=== PATIENT | female | born 1950 | race Caucasian/White ===

== ENCOUNTER → 2017-01-08 | Day surgery (SDC) | payer OTHER ==
[~2017-01-08] VITALS: Ht 144.8 cm; Wt 76.2 kg
[~2017-01-08] MED LIST: ACETAMINOPHEN 325 MG TAB PO PRN; ASPI1TAB PO; ATOR40TA PO; AcetaZOLAMIDE 500 MG ER CAP PO ONE; BSS with VANC/TOB/EPI for EYE CASES IR ONE; CO Q200C PO; CYCLOPENTOLATE 2% OPHTH SOLN As Ordered ONE; CYCLOPENTOLATE 2% OPHTH SOLN XX ONE; D5W/0.2% SODIUM CHLORIDE 250 ML IV SCH; DETR2CAP PO; DRIS50002 PO; FLAX10002 PO; HEALON DUET (HEALON 10MG/ML 0.55ML & HEALON ENDOCOAT 30MG/ML 0.85ML) As Ordered ONE; KETOROLAC 0.5% OPHTH SOLN OD ONE; LIDOCAINE 1% SDV 5 ML VIAL As Ordered ONE; LIDOCAINE 4% INJ 5 ML AMP OU ONE; LOSA25TA8 PO; MAGN250T9 PO; MIDAZOLAM INJ 2 MG/2 ML VIAL (J2250) As Ordered ONE; MOXIFLOXACIN IN BSS 0.25MG/0.25ML INTRACAMERAL INJ (OR EYE ONLY)(J2280) As Ordered ONE; NOVOINJ12 SC; NOVOINJ14 SC; OFLOXACIN 0.3 % (OCUFLOX) OPTH SOL 5ML As Ordered ONE; OFLOXACIN 0.3 % (OCUFLOX) OPTH SOL 5ML XX ONE; ONDA4TAB6 PO; PHENYLEPHRINE 2.5% OPHTH SOL 2ML As Ordered ONE; PHENYLEPHRINE 2.5% OPHTH SOL 2ML XX ONE; POVIDONE-IODINE 5% OPHTH PREP SOL 30ML As Ordered ONE; PREVINJ2 IM; PROPARACAINE 0.5% OPHTH SOL 15ML OD PRN; RHOD300C PO; TRIAMCINOLONE PRES FR 40 MG/ML 1ML(TRIESENCE)(OR EYE ONLY)(J3300 PER 1MG) As Ordered ONE; TRIC145T PO; TRIMETHOBENZAMIDE 300 MG CAP PO PRN; TROPICAMIDE 1% OPHTH SOLN 2 ML As Ordered ONE; TROPICAMIDE 1% OPHTH SOLN 2 ML XX ONE; TYLE325T5 PO; fentaNYL 100 MCG/2 ML INJECTION (J3010) As Ordered ONE
[2017-01-08 11:40] VITALS: BP 123/74
== END ==
LOC: M SDC 08:38
PROVIDERS: ATTEND Ophthalmology
DX: H25.9 Unspecified age-related cataract (principal); E11.3313 Type 2 diabetes mellitus with moderate nonproliferative diabetic retinopathy with macular edema, bilateral; R32 Unspecified urinary incontinence; I10 Essential (primary) hypertension; R80.9 Proteinuria, unspecified; F41.9 Anxiety disorder, unspecified; E78.00 Pure hypercholesterolemia, unspecified; G62.9 Polyneuropathy, unspecified; E55.9 Vitamin D deficiency, unspecified; Z87.440 Personal history of urinary (tract) infections; Z79.899 Other long term (current) drug therapy; Z79.4 Long term (current) use of insulin; Z79.82 Long term (current) use of aspirin; Z88.8 Allergy status to other drugs, medicaments and biological substances
CPT/HCPCS: 66984; J2250; J2280; J3010; J3300

== ENCOUNTER → 2017-01-17 | Day surgery (SDC) | payer OTHER ==
[~2017-01-17] VITALS: Ht 144.8 cm; Wt 76.0 kg
[~2017-01-17] MED LIST changes: +ACETYLCHOLINE OPHTH SOLN 1% 2ML As Ordered ONE; -AcetaZOLAMIDE 500 MG ER CAP PO ONE; -CYCLOPENTOLATE 2% OPHTH SOLN As Ordered ONE; +CYCLOPENTOLATE 2% OPHTH SOLN OS ONE; -CYCLOPENTOLATE 2% OPHTH SOLN XX ONE; +D5W/0.2% SODIUM CHLORIDE 250 ML IV ONE; -D5W/0.2% SODIUM CHLORIDE 250 ML IV SCH; -KETOROLAC 0.5% OPHTH SOLN OD ONE; +KETOROLAC 0.5% OPHTH SOLN OS ONE; +LIDOCAINE W/EPINEPHRINE 1% 20ML VIAL As Ordered ONE; -OFLOXACIN 0.3 % (OCUFLOX) OPTH SOL 5ML As Ordered ONE; +OFLOXACIN 0.3 % (OCUFLOX) OPTH SOL 5ML OS ONE; -OFLOXACIN 0.3 % (OCUFLOX) OPTH SOL 5ML XX ONE; -PHENYLEPHRINE 2.5% OPHTH SOL 2ML As Ordered ONE; +PHENYLEPHRINE 2.5% OPHTH SOL 2ML OS ONE; -PHENYLEPHRINE 2.5% OPHTH SOL 2ML XX ONE; -PROPARACAINE 0.5% OPHTH SOL 15ML OD PRN; +PROPARACAINE 0.5% OPHTH SOL 15ML OS PRN; -TROPICAMIDE 1% OPHTH SOLN 2 ML As Ordered ONE; +TROPICAMIDE 1% OPHTH SOLN 2 ML OS ONE; -TROPICAMIDE 1% OPHTH SOLN 2 ML XX ONE; +hydrALAZINE INJ 20 MG/ML VIAL As Ordered ONE
[2017-01-17] MEDS: CEFUROXIME 1MG/0.1ML INTRACAMERAL INJ As Ordered ONE ×2 (06:19→10:08)
[2017-01-17 10:45] VITALS: BP 167/95
== END ==
LOC: M SDC 06:49 → EDUNIT# 13:00
PROVIDERS: ATTEND Ophthalmology
DX: H26.9 Unspecified cataract (principal); E11.3313 Type 2 diabetes mellitus with moderate nonproliferative diabetic retinopathy with macular edema, bilateral; F41.9 Anxiety disorder, unspecified; G62.9 Polyneuropathy, unspecified; E78.00 Pure hypercholesterolemia, unspecified; E55.9 Vitamin D deficiency, unspecified; R32 Unspecified urinary incontinence; Z78.0 Asymptomatic menopausal state; Z88.8 Allergy status to other drugs, medicaments and biological substances; Z79.899 Other long term (current) drug therapy; Z79.82 Long term (current) use of aspirin; Z79.4 Long term (current) use of insulin
CPT/HCPCS: 66984; J2250; J2280; J3010; J3300